=== PATIENT | female | born 1980 | race American Indian/Alaskan Native ===

== ENCOUNTER 2017-06-13 01:19 | Emergency (ER) | payer OTHER ==
[2017-06-13 01:35] VITALS: RESP 18; O2SAT 100
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
[2017-06-13 02:57] LABS: URINE BILIRUBIN NEGATIVE (NEGATIVE); URINE BLOOD NEGATIVE (NEGATIVE); URINE GLUCOSE (UA) NEGATIVE (NEGATIVE); URINE LEUKOCYTE ESTERASE TRACE Leu/uL (NEGATIVE); URINE PROTEIN TRACE mg/dL (<30 mg/dL)
[2017-06-13 02:58] LABS: URINE APPEARANCE CLEAR (CLEAR); URINE COLOR YELLOW (YELLOW)
[2017-06-13 04:22] VITALS: BP 110/62; PULSE 67; TEMP 98
== END 2017-06-13 03:25 | disposition home or self-care (01) ==
LOC: ED 01:19
DX: S80.01XA Contusion of right knee, initial encounter (principal); S39.92XA Unspecified injury of lower back, initial encounter; V49.9XXA Car occupant (driver) (passenger) injured in unspecified traffic accident, initial encounter; Y92.410 Unspecified street and highway as the place of occurrence of the external cause